=== PATIENT | female | born 1975 | race Hispanic/Latino ===

== ENCOUNTER 2017-12-09 18:57 | Emergency (ER) | payer OTHER ==
[2017-12-09 20:23] VITALS: BP 125/78; PULSE 95; RESP 17; TEMP 98.8; O2SAT 96
--- NOTE | 2017-12-09 21:46 | ED PDOC ---
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 Patient reports that [place] on top of her right foot, creating bruising and small abrasion to the area. At this time, patient is worried about fracture, infection , and tetanus booster. Tetanus not up to date PMD: Dr Mackey in [place] Past Medical History Reviewed: Historical Data, Nursing Documentation, Vital Signs Vital Signs: Last Vital Signs Temp 98.8 F 12/09/17 20:19 Pulse 95 H 12/09/17 20:19 Resp 17 12/09/17 20:19 BP 125/78 12/09/17 20:19 Pulse Ox 96 12/09/17 20:19 - Medical History PMH: No Chronic Diseases - Surgical History Surgical History: No Surg Hx - Family History Family History: States: Unknown Family Hx - Social History Current smoker - smoking cessation education provided: No Alcohol: None Drugs: Denies - Home Medications Home Medications: Ambulatory Orders Medication Instructions Recorded Cephalexin [cephalexin] 500 mg PO BID #14 cap 12/09/17 Ibuprofen [Motrin] 600 mg PO Q6 #20 tab 12/09/17 - Allergies Allergies/Adverse Reactions: Allergies Allergy/AdvReac Type Severity Reaction Status Date / Time No Known Allergies Allergy Verified 12/09/17 20:23 Review of Systems ROS Statement: Except As Marked, All Systems Reviewed And Found Negative Musculoskeletal: Positive for: Foot Pain (right with small abrasion) Physical Exam - Reviewed Nursing Documentation Reviewed: Yes Vital Signs Reviewed: Yes - Physical Exam Appears: Positive for: No Acute Distress Skin: Positive for: Normal Color, Warm, Dry Eye Exam: Positive for: Normal appearance Cardiovascular/Chest: Positive for: Regular Rate, Rhythm Respiratory: Positive for: Normal Breath Sounds. Negative for: Accessory Muscle Use, Respiratory Distress Pulses-Dorsalis Pedis (R): 2+ Extremity: Positive for: Normal ROM (able to ambulate with steady gait in ED), Swelling (4cm area of mild edema and ecchymosis with centralized superficial abrasion to top of right foot), Other (sensation in tact) Neurologic/Psych: Positive for: Oriented (x3). Negative for: Motor/Sensory Deficits - ECG O2 Sat by Pulse Oximetry: 96 (RA) Pulse Ox Interpretation: Normal Medical Decision Making Medical Decision Making: Time: 2117 Initial Impression: contusion / abrasion Initial Plan: --Urine --XR right foot --Tetanus booster --Patient is declining pain medication at this time XR: NAD, as read by machine sign writer site cleaned and dressed by machine sign writer. wound care discussed. Scribe Attestation: Documented by Svetlana Stephens, acting as a scribe for Diana Cook PA-C. Provider Scribe Attestation: All medical record entries made by the Scribe were at my direction and personally dictated by me. I have reviewed the chart and agree that the record accurately reflects my personal performance of the history, physical exam, medical decision making, and the department course for this patient. I have also personally directed, reviewed, and agree with the discharge instructions and disposition. Disposition - Clinical Impression Clinical Impression: Contusion, Abrasion, Foot injury - Patient ED Disposition Is Patient to be Admitted: No - Disposition Disposition: Routine/Home Disposition Time: 22:34 Condition: STABLE Prescriptions: Cephalexin [cephalexin] 500 mg PO BID #14 cap Ibuprofen [Motrin] 600 mg PO Q6 #20 tab Instructions: Contusion (DC), Skin Abrasions (DC) Forms: [employer] ([place]rainian)
[2017-12-09] MEDS ORDERED: Tdap Vaccine 0.5 ml Vial (10-64 yrs) IM ONE ×2 (22:09→22:16)
--- NOTE | 2017-12-10 09:39 | RAD ---
Date of service: 12/09/2017 PROCEDURE: Right Foot Radiographs. HISTORY: pain, crush injury COMPARISON: None. FINDINGS: BONES: No acute fracture or destructive bony lesion identified. JOINTS: Normal. SOFT TISSUES: Normal. OTHER FINDINGS: None. IMPRESSION: Unremarkable right foot radiographs.
== END 2017-12-09 22:39 | disposition home or self-care (01) ==
LOC: H.ER 18:57
DX: S90.31XA Contusion of right foot, initial encounter (principal); W22.8XXA Striking against or struck by other objects, initial encounter; Y92.89 Other specified places as the place of occurrence of the external cause; Z23 Encounter for immunization